=== PATIENT | female | born 1960 | race American Indian/Alaskan Native ===

== ENCOUNTER 2021-03-28 15:52 | Emergency (ER) | payer OTHER ==
[2021-03-28 15:59] VITALS: BP 128/71
--- NOTE | 2021-03-28 17:59 | Emergency Department Report ---
HPI - General Chief Complaint: Medical Clearance Time Seen by Provider: 03/28/21 17:38 - HPI HPI: 61-year-old -[place] female presents to the emergency department with the complaint of a 3-day history of body aches, sore throat, chills, subjective fever. The patient says that she was recently in the presence of someone who later told her that she had a recent COVID-19 infection. The patient is vaccinated against COVID-19 but does not have the booster yet. She has a past medical history of previous breast cancer, borderline diabetes on Metformin, hypertension. She has been using Tylenol for her symptoms without much relief. ED Past Medical Hx - Past Medical History Hx Hypertension: Yes Hx Diabetes: Yes (BORDERLINE) Hx of Cancer: Yes - Surgical History Additional Surgical History: BREAST - Social History Smoking Status: Never Smoker Substance Use Type: None - Medications Home Medications: Home Medications Medication Instructions Recorded Confirmed Last Taken Type Benzonatate [Tessalon Perles] 100 mg PO Q8HR PRN #20 capsule 03/28/21 Unknown Rx Ibuprofen [Motrin 600 MG tab] 600 mg PO Q8H PRN #20 tablet 03/28/21 Unknown Rx ED Review of Systems ROS: Stated complaint: HEADACHE AND COLD SX'S Other details as noted in HPI Comment: All other systems reviewed and negative Constitutional: chills, fever (Subjective) Eyes: denies: eye pain, vision change ENT: throat pain. denies: ear pain Respiratory: cough, shortness of breath Cardiovascular: denies: chest pain, edema Gastrointestinal: denies: abdominal pain, vomiting Genitourinary: denies: dysuria, discharge Musculoskeletal: myalgia. denies: joint swelling Skin: denies: rash, lesions Neurological: denies: headache, numbness, paresthesias Physical Exam - Physical Exam Vital Signs: Vital Signs 03/28/21 03/28/21 15:58 17:51 Temperature 98.7 F Pulse Rate 66 Respiratory 20 Rate Blood Pressure 128/71 [Right] O2 Sat by Pulse 100 97 Oximetry Physical Exam: GENERAL: The patient is well-developed well-nourished. HENT: Normocephalic. Atraumatic. Patient has moist mucous membranes. Oropharynx clear without tonsillar hypertrophy, erythema or exudates. No drooling or trismus. EYES: Extraocular motions are intact. NECK: Supple. Trachea is midline. CHEST/LUNGS: Clear to auscultation. No cough heard during examination. No tachypnea or accessory muscle use. HEART/CARDIOVASCULAR: Regular. There is no tachycardia. There is no murmur. ABDOMEN: Abdomen is soft, nontender. Patient has normal bowel sounds. There is no abdominal distention. SKIN: Skin is warm and dry. NEURO: The patient is awake, alert, and oriented. The patient is cooperative. The patient has no focal neurologic deficits. Normal speech. MUSCULOSKELETAL: There is no tenderness or deformity. There is no limitation range of motion. ED Course Vital Signs 03/28/21 03/28/21 15:58 17:51 Temperature 98.7 F Pulse Rate 66 Respiratory 20 Rate Blood Pressure 128/71 [Right] O2 Sat by Pulse 100 97 Oximetry ED Medical Decision Making - Medical Decision Making This patient presents with a 3-day history of body aches, sore throat, shortness of breath, cough, subjective fever, chills. On examination heart and lung sounds are normal to auscultation and she does not appear in any respiratory or acute distress. Oropharynx is clear. I spoke to the patient regarding doing a rapid strep test and chest x-ray, as well as giving a Toradol shot. However, with the patient heard that she could not be tested for COVID-19, she decided she did not want to have any testing done and decided that she would follow-up with her primary care provider. She was given a prescription for ibuprofen and Tessalon Perles. She was instructed to return to the emergency department if she changes her mind about further evaluation or with any acute distress. Critical Care Time: No Critical care attestation.: If time is entered above; I have spent that time in minutes in the direct care of this critically ill patient, excluding procedure time. ED Disposition Clinical Impression: Exposure to COVID-19 virus, Viral syndrome Pharyngitis Qualifiers: Pharyngitis/tonsillitis etiology: unspecified etiology Qualified Code(s): J02.9 - Acute pharyngitis, unspecified Upper respiratory infection Qualifiers: URI type: unspecified URI Qualified Code(s): J06.9 - Acute upper respiratory infection, unspecified Disposition: 01 HOME / SELF CARE / HOMELESS Is pt being admited?: No Condition: Stable Instructions: Viral Illness, Adult, Sore Throat Additional Instructions: Please follow-up with your primary care physician in the next few days. Return to the emergency department if you change your mind about further evaluation. Return to the emergency department with any worsening of your symptoms, new or concerning symptoms not addressed during this current emergency department visit, or with any acute distress. Prescriptions: Ibuprofen [Motrin 600 MG tab] 600 mg PO Q8H PRN #20 tablet PRN Reason: Pain Benzonatate [Tessalon Perles] 100 mg PO Q8HR PRN #20 capsule PRN Reason: Cough Referrals: PCP, Your [Other] - 2-3 Days Time of Disposition: 18:01
== END 2021-03-28 18:24 | disposition home or self-care (01) ==
LOC: ED 15:52
DX: B34.9 Viral infection, unspecified (principal); Z20.822 Contact with and (suspected) exposure to COVID-19; J02.9 Acute pharyngitis, unspecified; J06.9 Acute upper respiratory infection, unspecified; I10 Essential (primary) hypertension
CPT/HCPCS: 99282